=== PATIENT | female | born 1965 | race African-American/Black ===

== ENCOUNTER 2018-02-28 13:50 | Emergency (ER) | payer MEDICAID ==
[~2018-02-28] VITALS: Ht 162.6 cm; Wt 68.0 kg
[2018-02-28 13:58] VITALS: BP 134/88
== END 2018-02-28 21:30 | disposition left against medical advice (07) ==
LOC: ER 13:50
DX: Z53.21 Procedure and treatment not carried out due to patient leaving prior to being seen by health care provider (principal)

== ENCOUNTER 2018-09-03 22:44 | Inpatient (IN) | payer MEDICAID ==
[~2018-09-03] VITALS: Ht 160 cm; Wt 55.3 kg
[2018-09-03] MEDS ORDERED: SODIUM CHLORIDE 0.9% 1,000 ML IV ONE (23:12)
[2018-09-03 23:35] LABS: BASOPHILS % 0.9 % (0.0-2.0); EOSINOPHILS % 0.7 % (0.0-5.0); HEMATOCRIT. 44.2 % (36.0-48.0); HEMOGLOBIN. 14.7 g/dL (12.0-16.0); LYMPHOCYTES % 18.4 % (20.0-50.0); MEAN CORPUSCULAR HEMOGLOBIN 29.3 pg (28.0-32.0); MEAN CORPUSCULAR VOLUME 87.9 fL (81.0-99.0); MEAN PLATELET VOLUME 8.7 fl (7.4-10.4); MONOCYTES % 4.3 % (2.0-8.0); NEUTROPHILS % 75.7 % (40.0-76.0); PLATELET 219 x1000/uL (130-400); RED BLOOD CELL COUNT 5.02 mill/uL (4.2-5.4); RED CELL DISTRIBUTION WIDTH 14.8 % (11.6-14.6)
[2018-09-03 23:38] LABS: CHLORIDE 112 mEq/L (98-107)
[2018-09-03 23:41] LABS: INR 0.9; PROTHROMBIN TIME 9.3 sec (9.6-11.0)
[2018-09-03 23:42] LABS: ETHANOL BLOOD < 10 mg/dL
[2018-09-03 23:45] LABS: LDL CHOLESTEROL 124 mg/dL (5-100)
[2018-09-04] VITALS (69 sets, daily range): BP systolic 124–181; BP diastolic 73–110
[2018-09-04] MEDS ORDERED: LABETALOL 5MG/ML SYR 20 MG/4 ML SYRINGE IV ONE
[2018-09-04] MEDS ORDERED: BENZTROPINE MESYLATE 1MG/1ML 2ML AMP IM ONE
[2018-09-04] MEDS ORDERED: HYDRALAZINE 20MG/ML VIAL IV ONE ×2 (02:00→02:45)
[2018-09-04] MEDS ORDERED: ASPIRIN 300MG SUPP PR ONE (02:00)
[2018-09-04 02:12] LABS: CLARITY URINE CLEAR (CLEAR); COLOR URINE YELLOW (YELLOW); KETONES URINE NEGATIVE (NEGATIVE); LEUKOCYTE ESTERASE URINE 1+ (NEGATIVE); NITRITE URINE POSITIVE (NEGATIVE); OCCULT BLOOD URINE 1+ (NEGATIVE); PROTEIN URINE NEGATIVE (NEGATIVE); SPECIFIC GRAVITY URINE 1.015 (1.005-1.030); UROBILINOGEN URINE 0.2 E.U./dL (0.2-1.0)
[2018-09-04 02:39] LABS: *BARBITURATES SCREEN URINE NEGATIVE (NEGATIVE); *BENZODIAZEPINES SCREEN URINE NEGATIVE (NEGATIVE); *COCAINE SCREEN URINE NEGATIVE (NEGATIVE); METHADONE URINE SCREEN NEGATIVE (NEGATIVE)
[2018-09-04 02:40] LABS: *AMPHETAMINES SCREEN URINE PRESUMTIVE POSITIVE (NEGATIVE); CANNABINOID URINE SCREEN NEGATIVE (NEGATIVE); OPIATES URINE SCREEN NEGATIVE (NEGATIVE); PHENCYCLIDINE URINE SCREEN NEGATIVE (NEGATIVE)
[2018-09-04] MEDS ORDERED: NICARDIPINE 40MG/200ML PREMIX 200 ML IV SCH (03:45)
[2018-09-04] MEDS ORDERED: IOHEXOL-350 100 ML BOTTLE ONE (03:58)
[2018-09-04] MEDS ORDERED: IPRATROPIUM/ALBUTEROL 0.5-3(2.5)MG/3ML NEB INH PRN (07:30)
[2018-09-04] MEDS ORDERED: GUAIFENESIN 200MG/10ML SUGAR FREE UDC PO PRN (07:30)
[2018-09-04] MEDS ORDERED: ACETAMINOPHEN 325MG TABLET PO PRN (07:30)
[2018-09-04] MEDS ORDERED: MAGNESIUM/ALUMINUM HYDROXIDE/SIMETHICONE 30ML UDC PO PRN (07:30)
[2018-09-04] MEDS ORDERED: ONDANSETRON HCL 4MG/2ML INJ IV PRN (07:30)
[2018-09-04] MEDS: DEXT 5%/0.45% NACL 1000ML 1,000 ML IV SCH (08:23)
[2018-09-04] MEDS: NICARDIPINE 50 MG in SODIUM CHLORIDE 0.9% 230 ML IV PRN ×2 (09:17→22:27)
[2018-09-04] MEDS: CEFTRIAXONE 1 G PREMIX 50 ML IV SCH (09:25)
[2018-09-04 10:38] LABS: PHOSPHORUS 2.2 mg/dL (2.5-4.9)
[2018-09-04 10:43] LABS: CREATINE KINASE MB FRACTION 2.6 ng/mL (0.5-3.6)
[2018-09-04 12:16] LABS: HEPATITIS B SURFACE ANTIGEN NEGATIVE
[2018-09-04 12:44] LABS: HEPATITIS A AB IGM NEGATIVE (NEGATIVE)
[2018-09-04 15:39] LABS: *BARBITURATES SCREEN URINE NEGATIVE (NEGATIVE)
[2018-09-04 15:40] LABS: *BENZODIAZEPINES SCREEN URINE NEGATIVE (NEGATIVE); CANNABINOID URINE SCREEN NEGATIVE (NEGATIVE); OPIATES URINE SCREEN NEGATIVE (NEGATIVE); PHENCYCLIDINE URINE SCREEN NEGATIVE (NEGATIVE)
[2018-09-04 15:43] LABS: *AMPHETAMINES SCREEN URINE PRESUMTIVE POSITIVE (NEGATIVE)
[2018-09-04 15:47] LABS: *COCAINE SCREEN URINE NEGATIVE (NEGATIVE); METHADONE URINE SCREEN NEGATIVE (NEGATIVE)
[2018-09-04 16:14] LABS: CREATINE KINASE MB FRACTION 2.6 ng/mL (0.5-3.6)
[2018-09-04] MEDS: ENOXAPARIN 40MG/0.4ML SYR SUBCUT SCH (20:54)
[2018-09-05] VITALS (95 sets, daily range): BP systolic 121–167; BP diastolic 67–113
[2018-09-05] MEDS: DEXT 5%/0.45% NACL 1000ML 1,000 ML IV SCH (00:40)
[2018-09-05] MEDS: NICARDIPINE 50 MG in SODIUM CHLORIDE 0.9% 230 ML IV PRN (04:49)
[2018-09-05 05:37] LABS: BASOPHILS % 0.6 % (0.0-2.0); EOSINOPHILS % 0.6 % (0.0-5.0); HEMATOCRIT. 45.1 % (36.0-48.0); HEMOGLOBIN. 14.4 g/dL (12.0-16.0); LYMPHOCYTES % 16.3 % (20.0-50.0); MEAN CORPUSCULAR HEMOGLOBIN 28.4 pg (28.0-32.0); MEAN CORPUSCULAR VOLUME 88.9 fL (81.0-99.0); MEAN PLATELET VOLUME 9.1 fl (7.4-10.4); MONOCYTES % 7.3 % (2.0-8.0); NEUTROPHILS % 75.2 % (40.0-76.0); PLATELET 254 x1000/uL (130-400); RED BLOOD CELL COUNT 5.08 mill/uL (4.2-5.4); RED CELL DISTRIBUTION WIDTH 15.3 % (11.6-14.6)
[2018-09-05 05:49] LABS: CHLORIDE 124 mEq/L (98-107)
[2018-09-05 06:03] LABS: LDL CHOLESTEROL 113 mg/dL (5-100)
[2018-09-05 06:05] LABS: HDL CHOLESTEROL 45 mg/dL (40-59)
[2018-09-05] MEDS: CEFTRIAXONE 1 G PREMIX 50 ML IV SCH (08:44)
[2018-09-05] MEDS: DEXTROSE 5% WATER 1,000 ML IV SCH (11:00)
[2018-09-05] MEDS ORDERED: NICARDIPINE 50 MG in SODIUM CHLORIDE 0.9% 230 ML IV PRN (11:30)
[2018-09-05 12:59] LABS: CHLORIDE 124 mEq/L (98-107)
[2018-09-05] MEDS ORDERED: NICARDIPINE 40MG/200ML PREMIX 200 ML IV SCH (14:45)
[2018-09-05 15:05] LABS: CHLORIDE 126 mEq/L (98-107)
[2018-09-05] MEDS ORDERED: NICARDIPINE 50 MG in SODIUM CHLORIDE 0.9% 230 ML IV SCH (16:00)
[2018-09-05] MEDS ORDERED: LITHIUM CARBONATE 150 MG CAPSULE PO SCH (17:00)
[2018-09-05 17:04] LABS: CHLORIDE 124 mEq/L (98-107)
[2018-09-05 18:51] LABS: CHLORIDE 126 mEq/L (98-107)
[2018-09-05] MEDS: ENOXAPARIN 40MG/0.4ML SYR SUBCUT SCH (20:24)
[2018-09-05 23:15] LABS: CHLORIDE 124 mEq/L (98-107)
[2018-09-06] VITALS (105 sets, daily range): BP systolic 103–184; BP diastolic 55–135
[2018-09-06] MEDS: DEXTROSE 5% WATER 1,000 ML IV SCH ×3 (00:45→18:32)
[2018-09-06 00:57] LABS: CHLORIDE 122 mEq/L (98-107)
[2018-09-06] MEDS: CLONIDINE 0.1MG TABLET PO PRN ×2 (02:17→10:57)
[2018-09-06] MEDS: DIPHENHYDRAMINE 50MG/ML VIAL IV PRN (02:18)
[2018-09-06 05:50] LABS: BASOPHILS % 0.7 % (0.0-2.0); EOSINOPHILS % 0.6 % (0.0-5.0); HEMATOCRIT. 41.9 % (36.0-48.0); HEMOGLOBIN. 13.5 g/dL (12.0-16.0); LYMPHOCYTES % 20.4 % (20.0-50.0); MEAN CORPUSCULAR HEMOGLOBIN 28.7 pg (28.0-32.0); MEAN PLATELET VOLUME 9.4 fl (7.4-10.4); MONOCYTES % 6.9 % (2.0-8.0); NEUTROPHILS % 71.4 % (40.0-76.0); PLATELET 238 x1000/uL (130-400); RED BLOOD CELL COUNT 4.71 mill/uL (4.2-5.4); RED CELL DISTRIBUTION WIDTH 15.2 % (11.6-14.6)
[2018-09-06 06:13] LABS: HIV SCREEN 4G Non Reactive (Non Reactive)
[2018-09-06 06:20] LABS: CHLORIDE 122 mEq/L (98-107)
[2018-09-06 06:39] LABS: PHOSPHORUS 2.9 mg/dL (2.5-4.9)
[2018-09-06 07:38] LABS: BG BASE EXCESS -2.7 mmol/L (-2.0-2.0); BG CARBOXYHEMOGLOBIN 0.5 % (0.5-1.5); BG DEOXYHEMOGLOBIN 1.3 % (0.0-5.0); BG HCO3 ACT 21.4 mmol/L (22.0-26.0); BG METHEMOGLOBIN 0.1 % (0.0-1.5); BG OXYGEN SATURATION 98.7 % (92.0-98.5); BG OXYHEMOGLOBIN 98.1 % (94.0-97.0); BG PCO2 35.4 mmHg (35.0-45.0); BG PO2 130.5 mmHg (75.0-100.0); BG SAMPLE SITE RIGHT BRACHIAL; BG TOTAL HEMOGLOBIN 14.5 g/dL (12.0-18.0); BG VENT MODE NASAL CANNULA
[2018-09-06 08:05] LABS: CHLORIDE 123 mEq/L (98-107)
[2018-09-06] MEDS: CEFTRIAXONE 1 G PREMIX 50 ML IV SCH (08:49)
[2018-09-06] MEDS: ASPIRIN 81MG TABLET PO SCH (08:50)
[2018-09-06 14:38] LABS: CHLORIDE 121 mEq/L (98-107)
[2018-09-06] MEDS ORDERED: DILTIAZEM HCL 60MG TABLET PO NR (16:00)
[2018-09-06] MEDS ORDERED: POTASSIUM CHLORIDE INJ 40 MEQ in DEXT 5% WATER 250 ML IV NR (17:00)
[2018-09-06] MEDS: NICARDIPINE 50 MG in SODIUM CHLORIDE 0.9% 230 ML IV SCH (21:01)
[2018-09-06] MEDS: ENOXAPARIN 40MG/0.4ML SYR SUBCUT SCH (21:01)
[2018-09-06] MEDS: ATORVASTATIN CALCIUM 20MG TABLET PO SCH (21:02)
[2018-09-06] MEDS: HYDRALAZINE HCL 50MG TABLET PO SCH (21:02)
[2018-09-06] MEDS: DILTIAZEM HCL 60MG TABLET PO SCH ×2 (21:02→23:18)
[2018-09-07] VITALS (74 sets, daily range): BP systolic 115–161; BP diastolic 67–95
[2018-09-07] MEDS: DEXTROSE 5% WATER 1,000 ML IV SCH ×3 (01:19→23:32)
[2018-09-07] MEDS: HYDRALAZINE HCL 50MG TABLET PO SCH ×3 (05:28→21:10)
[2018-09-07] MEDS: DILTIAZEM HCL 60MG TABLET PO SCH (05:28)
[2018-09-07 05:45] LABS: EOSINOPHILS % 1.1 % (0.0-5.0); HEMATOCRIT. 44.1 % (36.0-48.0); LYMPHOCYTES % 15.2 % (20.0-50.0); MEAN CORPUSCULAR HEMOGLOBIN 28.4 pg (28.0-32.0); MEAN PLATELET VOLUME 9.3 fl (7.4-10.4); MONOCYTES % 5.2 % (2.0-8.0); NEUTROPHILS % 77.5 % (40.0-76.0); PLATELET 248 x1000/uL (130-400); RED BLOOD CELL COUNT 4.95 mill/uL (4.2-5.4); RED CELL DISTRIBUTION WIDTH 15.1 % (11.6-14.6)
[2018-09-07 06:00] LABS: CHLORIDE 118 mEq/L (98-107)
[2018-09-07] MEDS: NICARDIPINE 50 MG in SODIUM CHLORIDE 0.9% 230 ML IV SCH (06:59)
[2018-09-07] MEDS: CEFTRIAXONE 1 G PREMIX 50 ML IV SCH (09:34)
[2018-09-07] MEDS: ASPIRIN 81MG TABLET PO SCH (09:35)
[2018-09-07] MEDS: DILTIAZEM HCL 90MG TABLET PO SCH ×2 (14:37→21:10)
[2018-09-07] MEDS: ATORVASTATIN CALCIUM 20MG TABLET PO SCH (21:10)
[2018-09-07] MEDS: ENOXAPARIN 40MG/0.4ML SYR SUBCUT SCH (21:11)
[2018-09-08] VITALS (35 sets, daily range): BP systolic 123–152; BP diastolic 70–97
[2018-09-08] MEDS: DILTIAZEM HCL 90MG TABLET PO SCH ×3 (05:34→21:08)
[2018-09-08] MEDS: HYDRALAZINE HCL 50MG TABLET PO SCH ×3 (05:34→21:08)
[2018-09-08 05:38] LABS: BASOPHILS % 0.6 % (0.0-2.0); EOSINOPHILS % 2.2 % (0.0-5.0); HEMATOCRIT. 43.1 % (36.0-48.0); HEMOGLOBIN. 13.7 g/dL (12.0-16.0); LYMPHOCYTES % 22.6 % (20.0-50.0); MEAN CORPUSCULAR HEMOGLOBIN 28.2 pg (28.0-32.0); MEAN CORPUSCULAR VOLUME 88.5 fL (81.0-99.0); MEAN PLATELET VOLUME 9.4 fl (7.4-10.4); MONOCYTES % 6.2 % (2.0-8.0); NEUTROPHILS % 68.4 % (40.0-76.0); PLATELET 246 x1000/uL (130-400); RED BLOOD CELL COUNT 4.87 mill/uL (4.2-5.4); RED CELL DISTRIBUTION WIDTH 14.7 % (11.6-14.6)
[2018-09-08 05:39] LABS: CHLORIDE 114 mEq/L (98-107)
[2018-09-08 05:49] LABS: PHOSPHORUS 3.7 mg/dL (2.5-4.9)
[2018-09-08] MEDS: CEFTRIAXONE 1 G PREMIX 50 ML IV SCH (08:03)
[2018-09-08] MEDS: ASPIRIN 81MG TABLET PO SCH (08:03)
[2018-09-08] MEDS: DEXTROSE 5% WATER 1,000 ML IV SCH (13:03)
[2018-09-08] MEDS: ENOXAPARIN 40MG/0.4ML SYR SUBCUT SCH (21:08)
[2018-09-08] MEDS: ATORVASTATIN CALCIUM 20MG TABLET PO SCH (21:08)
[2018-09-08] MEDS: DOCUSATE SODIUM 100MG CAPSULE PO PRN (21:55)
[2018-09-09] VITALS (15 sets, daily range): BP systolic 122–163; BP diastolic 70–105
[2018-09-09] MEDS: DEXTROSE 5% WATER 1,000 ML IV SCH ×2 (02:40→13:55)
[2018-09-09] MEDS: HYDRALAZINE HCL 50MG TABLET PO SCH ×3 (06:13→21:49)
[2018-09-09] MEDS: DILTIAZEM HCL 90MG TABLET PO SCH ×3 (06:13→21:49)
[2018-09-09 06:21] LABS: BASOPHILS % 0.8 % (0.0-2.0); EOSINOPHILS % 2.6 % (0.0-5.0); HEMATOCRIT. 42.8 % (36.0-48.0); HEMOGLOBIN. 13.8 g/dL (12.0-16.0); LYMPHOCYTES % 28.2 % (20.0-50.0); MEAN CORPUSCULAR HEMOGLOBIN 28.5 pg (28.0-32.0); MEAN CORPUSCULAR VOLUME 88.3 fL (81.0-99.0); MEAN PLATELET VOLUME 9.5 fl (7.4-10.4); MONOCYTES % 8.9 % (2.0-8.0); NEUTROPHILS % 59.5 % (40.0-76.0); PLATELET 256 x1000/uL (130-400); RED BLOOD CELL COUNT 4.84 mill/uL (4.2-5.4); RED CELL DISTRIBUTION WIDTH 14.7 % (11.6-14.6)
[2018-09-09 07:12] LABS: CHLORIDE 116 mEq/L (98-107)
[2018-09-09 07:23] LABS: PHOSPHORUS 3.2 mg/dL (2.5-4.9)
[2018-09-09] MEDS: ASPIRIN 81MG TABLET PO SCH (08:42)
[2018-09-09] MEDS: CEFTRIAXONE 1 G PREMIX 50 ML IV SCH (08:42)
[2018-09-09] MEDS: CLONIDINE 0.1MG TABLET PO PRN (10:21)
[2018-09-09] MEDS: DOCUSATE SODIUM 100MG CAPSULE PO PRN (13:48)
[2018-09-09 17:43] LABS: CLARITY URINE CLEAR (CLEAR); COLOR URINE YELLOW (YELLOW); KETONES URINE NEGATIVE (NEGATIVE); LEUKOCYTE ESTERASE URINE 1+ (NEGATIVE); NITRITE URINE NEGATIVE (NEGATIVE); OCCULT BLOOD URINE NEGATIVE (NEGATIVE); PH URINE 6.5 (4.5-8.0); PROTEIN URINE NEGATIVE (NEGATIVE); SPECIFIC GRAVITY URINE 1.008 (1.005-1.030); UROBILINOGEN URINE 0.2 E.U./dL (0.2-1.0)
[2018-09-09] MEDS: ATORVASTATIN CALCIUM 20MG TABLET PO SCH (21:48)
[2018-09-09] MEDS: ENOXAPARIN 40MG/0.4ML SYR SUBCUT SCH (21:48)
[2018-09-10] VITALS (12 sets, daily range): BP systolic 142–176; BP diastolic 75–105
[2018-09-10] MEDS: DEXTROSE 5% WATER 1,000 ML IV SCH ×3 (01:05→21:50)
[2018-09-10] MEDS: HYDRALAZINE HCL 50MG TABLET PO SCH (06:03)
[2018-09-10] MEDS: DILTIAZEM HCL 90MG TABLET PO SCH ×3 (06:03→21:54)
[2018-09-10 07:25] LABS: EOSINOPHILS % 2.4 % (0.0-5.0); HEMATOCRIT. 42.8 % (36.0-48.0); HEMOGLOBIN. 13.9 g/dL (12.0-16.0); LYMPHOCYTES % 23.8 % (20.0-50.0); MEAN CORPUSCULAR HEMOGLOBIN 28.7 pg (28.0-32.0); MEAN CORPUSCULAR VOLUME 88.3 fL (81.0-99.0); MEAN PLATELET VOLUME 9.4 fl (7.4-10.4); MONOCYTES % 7.8 % (2.0-8.0); PLATELET 235 x1000/uL (130-400); RED BLOOD CELL COUNT 4.85 mill/uL (4.2-5.4); RED CELL DISTRIBUTION WIDTH 14.3 % (11.6-14.6)
[2018-09-10 07:37] LABS: CHLORIDE 115 mEq/L (98-107)
[2018-09-10] MEDS: ASPIRIN 81MG TABLET PO SCH (09:16)
[2018-09-10] MEDS: LOSARTAN POTASSIUM 25 MG TABLET PO SCH (13:37)
[2018-09-10] MEDS: HYDRALAZINE HCL 100MG TABLET PO SCH ×2 (13:38→21:53)
[2018-09-10] MEDS: ENOXAPARIN 40MG/0.4ML SYR SUBCUT SCH (21:51)
[2018-09-10] MEDS: ATORVASTATIN CALCIUM 20MG TABLET PO SCH (21:51)
[2018-09-11] VITALS (20 sets, daily range): BP systolic 110–150; BP diastolic 61–94
[2018-09-11] MEDS: DEXTROSE 5% WATER 1,000 ML IV SCH (06:08)
[2018-09-11] MEDS: HYDRALAZINE HCL 100MG TABLET PO SCH ×3 (06:09→22:01)
[2018-09-11] MEDS: DILTIAZEM HCL 90MG TABLET PO SCH ×3 (06:09→21:57)
[2018-09-11 07:41] LABS: EOSINOPHILS % 1.7 % (0.0-5.0); HEMATOCRIT. 43.1 % (36.0-48.0); HEMOGLOBIN. 13.7 g/dL (12.0-16.0); LYMPHOCYTES % 17.8 % (20.0-50.0); MEAN CORPUSCULAR VOLUME 88.3 fL (81.0-99.0); MEAN PLATELET VOLUME 9.9 fl (7.4-10.4); MONOCYTES % 8.7 % (2.0-8.0); NEUTROPHILS % 70.8 % (40.0-76.0); PLATELET 265 x1000/uL (130-400); RED BLOOD CELL COUNT 4.88 mill/uL (4.2-5.4); RED CELL DISTRIBUTION WIDTH 14.6 % (11.6-14.6)
[2018-09-11 07:58] LABS: CHLORIDE 119 mEq/L (98-107)
[2018-09-11] MEDS: ASPIRIN 81MG TABLET PO SCH (09:40)
[2018-09-11] MEDS: LOSARTAN POTASSIUM 25 MG TABLET PO SCH (09:41)
[2018-09-11] MEDS: SODIUM CHLORIDE IV SCH ×2 (16:00→22:02)
[2018-09-11] MEDS: WATER IV SCH ×2 (16:00→22:02)
[2018-09-11] MEDS: [UNRECOGNIZED DRUG - OTHER] IV SCH ×2 (16:00→22:02)
[2018-09-11] MEDS: DEXTROSE IV SCH ×2 (16:00→22:02)
[2018-09-11] MEDS: ENOXAPARIN 40MG/0.4ML SYR SUBCUT SCH (21:56)
[2018-09-11] MEDS: ATORVASTATIN CALCIUM 20MG TABLET PO SCH (22:02)
[2018-09-12] VITALS (11 sets, daily range): BP systolic 114–151; BP diastolic 53–89
[2018-09-12 05:43] LABS: BASOPHILS % 0.7 % (0.0-2.0); EOSINOPHILS % 1.9 % (0.0-5.0); HEMOGLOBIN. 13.3 g/dL (12.0-16.0); LYMPHOCYTES % 27.1 % (20.0-50.0); MEAN CORPUSCULAR HEMOGLOBIN 27.9 pg (28.0-32.0); MEAN CORPUSCULAR VOLUME 88.5 fL (81.0-99.0); MEAN PLATELET VOLUME 10.1 fl (7.4-10.4); MONOCYTES % 7.1 % (2.0-8.0); NEUTROPHILS % 63.2 % (40.0-76.0); PLATELET 258 x1000/uL (130-400); RED BLOOD CELL COUNT 4.75 mill/uL (4.2-5.4); RED CELL DISTRIBUTION WIDTH 14.4 % (11.6-14.6)
[2018-09-12] MEDS: HYDRALAZINE HCL 100MG TABLET PO SCH ×3 (06:29→22:00)
[2018-09-12] MEDS: DILTIAZEM HCL 90MG TABLET PO SCH ×3 (06:29→22:54)
[2018-09-12] MEDS: DEXTROSE IV SCH ×2 (06:30→14:01)
[2018-09-12] MEDS: [UNRECOGNIZED DRUG - OTHER] IV SCH ×2 (06:30→14:01)
[2018-09-12] MEDS: WATER IV SCH ×2 (06:30→14:01)
[2018-09-12] MEDS: SODIUM CHLORIDE IV SCH ×2 (06:30→14:01)
[2018-09-12 07:49] LABS: CHLORIDE 116 mEq/L (98-107)
[2018-09-12 07:55] LABS: PHOSPHORUS 3.3 mg/dL (2.5-4.9)
[2018-09-12] MEDS: LOSARTAN POTASSIUM 25 MG TABLET PO SCH (08:42)
[2018-09-12] MEDS: ASPIRIN 81MG TABLET PO SCH (08:42)
[2018-09-12] MEDS: DEXTROSE 5% WATER 1,000 ML IV SCH (16:53)
[2018-09-12] MEDS: ATORVASTATIN CALCIUM 20MG TABLET PO SCH (22:53)
[2018-09-12] MEDS: ENOXAPARIN 40MG/0.4ML SYR SUBCUT SCH (22:55)
[2018-09-13 00:20] VITALS: BP 120/71
[2018-09-13] MEDS: DEXTROSE 5% WATER 1,000 ML IV SCH ×3 (02:21→21:42)
[2018-09-13 04:00] VITALS: BP 141/78
[2018-09-13] MEDS: DILTIAZEM HCL 90MG TABLET PO SCH ×3 (05:26→21:11)
[2018-09-13] MEDS: HYDRALAZINE HCL 100MG TABLET PO SCH ×3 (05:27→21:12)
[2018-09-13 06:10] LABS: BASOPHILS % 0.8 % (0.0-2.0); EOSINOPHILS % 1.9 % (0.0-5.0); HEMATOCRIT. 39.9 % (36.0-48.0); HEMOGLOBIN. 13.3 g/dL (12.0-16.0); MEAN CORPUSCULAR HEMOGLOBIN 29.3 pg (28.0-32.0); MEAN PLATELET VOLUME 9.8 fl (7.4-10.4); MONOCYTES % 6.9 % (2.0-8.0); NEUTROPHILS % 63.4 % (40.0-76.0); PLATELET 242 x1000/uL (130-400); RED BLOOD CELL COUNT 4.54 mill/uL (4.2-5.4); RED CELL DISTRIBUTION WIDTH 14.4 % (11.6-14.6)
[2018-09-13 07:56] LABS: CHLORIDE 113 mEq/L (98-107)
[2018-09-13 08:00] VITALS: BP_SYST 108; BP_SYST 119; BP_DIAS 46; BP_DIAS 75
[2018-09-13 08:05] LABS: PHOSPHORUS 3.5 mg/dL (2.5-4.9)
[2018-09-13] MEDS: LOSARTAN POTASSIUM 25 MG TABLET PO SCH (09:29)
[2018-09-13] MEDS: ASPIRIN 81MG TABLET PO SCH (09:29)
[2018-09-13 12:00] VITALS: BP 135/61
[2018-09-13 16:00] VITALS: BP 103/49
[2018-09-13 20:23] VITALS: BP 105/51
[2018-09-13] MEDS: ENOXAPARIN 40MG/0.4ML SYR SUBCUT SCH (21:42)
[2018-09-13] MEDS: ATORVASTATIN CALCIUM 20MG TABLET PO SCH (21:42)
[2018-09-14] VITALS: BP 118/64
[2018-09-14 04:39] VITALS: BP 124/79
[2018-09-14] MEDS: DILTIAZEM HCL 90MG TABLET PO SCH ×3 (05:14→21:07)
[2018-09-14] MEDS: HYDRALAZINE HCL 100MG TABLET PO SCH ×3 (05:14→21:07)
[2018-09-14 06:41] LABS: BASOPHILS % 0.9 % (0.0-2.0); EOSINOPHILS % 1.8 % (0.0-5.0); HEMATOCRIT. 41.2 % (36.0-48.0); HEMOGLOBIN. 13.6 g/dL (12.0-16.0); LYMPHOCYTES % 21.7 % (20.0-50.0); MEAN CORPUSCULAR HEMOGLOBIN 28.9 pg (28.0-32.0); MEAN CORPUSCULAR VOLUME 87.9 fL (81.0-99.0); MEAN PLATELET VOLUME 9.3 fl (7.4-10.4); NEUTROPHILS % 67.6 % (40.0-76.0); PLATELET 269 x1000/uL (130-400); RED BLOOD CELL COUNT 4.69 mill/uL (4.2-5.4); RED CELL DISTRIBUTION WIDTH 14.6 % (11.6-14.6)
[2018-09-14 07:14] LABS: CHLORIDE 111 mEq/L (98-107)
[2018-09-14 07:25] LABS: PHOSPHORUS 3.4 mg/dL (2.5-4.9)
[2018-09-14] MEDS: LOSARTAN POTASSIUM 25 MG TABLET PO SCH (09:00)
[2018-09-14] MEDS: ASPIRIN 81MG TABLET PO SCH (09:38)
[2018-09-14] MEDS: DEXTROSE 5% WATER 1,000 ML IV SCH (09:40)
[2018-09-14 11:25] VITALS: BP 106/61
[2018-09-14 15:57] VITALS: BP 110/63
[2018-09-14 20:00] VITALS: BP 122/75
[2018-09-14] MEDS: ENOXAPARIN 40MG/0.4ML SYR SUBCUT SCH (20:32)
[2018-09-14] MEDS: ATORVASTATIN CALCIUM 20MG TABLET PO SCH (20:33)
[2018-09-15] VITALS: BP 127/69
[2018-09-15] MEDS: DEXTROSE 5% WATER 1,000 ML IV SCH ×2 (04:00→16:51)
[2018-09-15 04:11] VITALS: BP 131/74
[2018-09-15] MEDS: HYDRALAZINE HCL 100MG TABLET PO SCH ×3 (06:00→21:33)
[2018-09-15] MEDS: DILTIAZEM HCL 90MG TABLET PO SCH ×3 (06:00→21:33)
[2018-09-15 06:36] LABS: BASOPHILS % 0.9 % (0.0-2.0); EOSINOPHILS % 2.4 % (0.0-5.0); HEMATOCRIT. 39.7 % (36.0-48.0); LYMPHOCYTES % 26.7 % (20.0-50.0); MEAN CORPUSCULAR HEMOGLOBIN 28.7 pg (28.0-32.0); MEAN CORPUSCULAR VOLUME 87.6 fL (81.0-99.0); MEAN PLATELET VOLUME 9.7 fl (7.4-10.4); MONOCYTES % 7.6 % (2.0-8.0); NEUTROPHILS % 62.4 % (40.0-76.0); PLATELET 266 x1000/uL (130-400); RED BLOOD CELL COUNT 4.53 mill/uL (4.2-5.4); RED CELL DISTRIBUTION WIDTH 14.5 % (11.6-14.6)
[2018-09-15 07:26] LABS: CHLORIDE 107 mEq/L (98-107)
[2018-09-15 07:45] LABS: PHOSPHORUS 3.6 mg/dL (2.5-4.9)
[2018-09-15 08:00] VITALS: BP 109/65
[2018-09-15] MEDS: LOSARTAN POTASSIUM 25 MG TABLET PO SCH (08:33)
[2018-09-15] MEDS: ASPIRIN 81MG TABLET PO SCH (08:38)
[2018-09-15 12:02] VITALS: BP 123/82
[2018-09-15 15:37] VITALS: BP 127/71
[2018-09-15 20:00] VITALS: BP 128/70
[2018-09-15] MEDS: ENOXAPARIN 40MG/0.4ML SYR SUBCUT SCH (21:32)
[2018-09-15] MEDS: ATORVASTATIN CALCIUM 20MG TABLET PO SCH (21:32)
[2018-09-16] VITALS: BP 120/65
[2018-09-16 04:00] VITALS: BP 123/69
[2018-09-16] MEDS: HYDRALAZINE HCL 100MG TABLET PO SCH ×3 (06:22→21:14)
[2018-09-16] MEDS: DILTIAZEM HCL 90MG TABLET PO SCH ×3 (06:22→21:14)
[2018-09-16 08:11] LABS: BASOPHILS % 0.9 % (0.0-2.0); EOSINOPHILS % 2.2 % (0.0-5.0); HEMATOCRIT. 39.5 % (36.0-48.0); HEMOGLOBIN. 13.1 g/dL (12.0-16.0); MEAN CORPUSCULAR HEMOGLOBIN 28.9 pg (28.0-32.0); MEAN CORPUSCULAR VOLUME 86.9 fL (81.0-99.0); MEAN PLATELET VOLUME 9.5 fl (7.4-10.4); MONOCYTES % 8.1 % (2.0-8.0); NEUTROPHILS % 67.8 % (40.0-76.0); PLATELET 277 x1000/uL (130-400); RED BLOOD CELL COUNT 4.55 mill/uL (4.2-5.4); RED CELL DISTRIBUTION WIDTH 14.5 % (11.6-14.6)
[2018-09-16 08:36] VITALS: BP 113/56
[2018-09-16] MEDS: ASPIRIN 81MG TABLET PO SCH (08:49)
[2018-09-16] MEDS: LOSARTAN POTASSIUM 25 MG TABLET PO SCH (08:49)
[2018-09-16 09:24] LABS: CHLORIDE 109 mEq/L (98-107)
[2018-09-16 09:36] LABS: PHOSPHORUS 3.3 mg/dL (2.5-4.9)
[2018-09-16 12:26] VITALS: BP 109/59
[2018-09-16] MEDS: DEXTROSE 5% WATER 1,000 ML IV SCH (15:12)
[2018-09-16 16:44] VITALS: BP 100/68
[2018-09-16 20:00] VITALS: BP 115/71
[2018-09-16] MEDS: ENOXAPARIN 40MG/0.4ML SYR SUBCUT SCH (21:14)
[2018-09-16] MEDS: CHOLECALCIFEROL (D3) 1000 UNIT TABLET PO SCH (21:14)
[2018-09-16] MEDS: ATORVASTATIN CALCIUM 20MG TABLET PO SCH (21:14)
[2018-09-17] VITALS: BP 113/75
[2018-09-17] MEDS: DEXTROSE 5% WATER 1,000 ML IV SCH ×2 (01:19→09:24)
[2018-09-17 04:00] VITALS: BP 107/70
[2018-09-17] MEDS: HYDRALAZINE HCL 100MG TABLET PO SCH (06:00)
[2018-09-17] MEDS: DILTIAZEM HCL 90MG TABLET PO SCH ×3 (06:05→21:22)
[2018-09-17 07:10] LABS: BASOPHILS % 0.9 % (0.0-2.0); EOSINOPHILS % 3.3 % (0.0-5.0); HEMATOCRIT. 36.5 % (36.0-48.0); HEMOGLOBIN. 12.1 g/dL (12.0-16.0); LYMPHOCYTES % 31.7 % (20.0-50.0); MEAN CORPUSCULAR VOLUME 87.8 fL (81.0-99.0); MEAN PLATELET VOLUME 9.5 fl (7.4-10.4); MONOCYTES % 8.8 % (2.0-8.0); NEUTROPHILS % 55.3 % (40.0-76.0); PLATELET 252 x1000/uL (130-400); RED BLOOD CELL COUNT 4.16 mill/uL (4.2-5.4); RED CELL DISTRIBUTION WIDTH 14.3 % (11.6-14.6)
[2018-09-17 07:51] LABS: CHLORIDE 108 mEq/L (98-107)
[2018-09-17 08:00] VITALS: BP 101/55
[2018-09-17 08:08] LABS: PHOSPHORUS 3.2 mg/dL (2.5-4.9)
[2018-09-17] MEDS: ASPIRIN 81MG TABLET PO SCH (09:12)
[2018-09-17] MEDS: LOSARTAN POTASSIUM 25 MG TABLET PO SCH (09:12)
[2018-09-17] MEDS: CHOLECALCIFEROL (D3) 1000 UNIT TABLET PO SCH (09:12)
[2018-09-17 12:00] VITALS: BP 98/63
[2018-09-17] MEDS ORDERED: DEXT 5% WATER + KCL 40MEQ/L 1,000 ML IV SCH (12:00)
[2018-09-17] MEDS: POTASSIUM CHLORIDE INJ 40 MEQ in DEXTROSE 5% WATER 1,000 ML IV SCH (13:31)
[2018-09-17] MEDS: HYDRALAZINE HCL 50MG TABLET PO SCH ×2 (13:33→21:23)
[2018-09-17] MEDS ORDERED: POTASSIUM CHLORIDE 20MEQ TABLET SR PO NR (14:22)
[2018-09-17 16:00] VITALS: BP 101/64
[2018-09-17 20:00] VITALS: BP 117/74
[2018-09-17] MEDS: ENOXAPARIN 40MG/0.4ML SYR SUBCUT SCH (21:22)
[2018-09-17] MEDS: ATORVASTATIN CALCIUM 20MG TABLET PO SCH (21:22)
[2018-09-18] VITALS (7 sets, daily range): BP systolic 113–131; BP diastolic 51–79
[2018-09-18] MEDS: DILTIAZEM HCL 90MG TABLET PO SCH ×3 (05:16→21:07)
[2018-09-18] MEDS: HYDRALAZINE HCL 50MG TABLET PO SCH (05:18)
[2018-09-18 08:44] LABS: CHLORIDE 111 mEq/L (98-107)
[2018-09-18] MEDS ORDERED: CHOLECALCIFEROL (D3) 1000 UNIT TABLET PO SCH ×2 (09:00)
[2018-09-18] MEDS: ASPIRIN 81MG TABLET PO SCH (09:14)
[2018-09-18] MEDS: LOSARTAN POTASSIUM 25 MG TABLET PO SCH (09:14)
[2018-09-18] MEDS: POTASSIUM CHLORIDE INJ 40 MEQ in DEXTROSE 5% WATER 1,000 ML IV SCH (10:54)
[2018-09-18] MEDS ORDERED: POTASSIUM CHLORIDE 20MEQ TABLET SR PO SCH (11:45)
[2018-09-18] MEDS: CLOTRIMAZOLE 10MG TROCHE MM SCH ×3 (14:19→21:06)
[2018-09-18] MEDS: HYDRALAZINE HCL 25MG TABLET PO SCH (21:00)
[2018-09-18] MEDS: ENOXAPARIN 40MG/0.4ML SYR SUBCUT SCH (21:07)
[2018-09-18] MEDS: ATORVASTATIN CALCIUM 20MG TABLET PO SCH (21:07)
[2018-09-19] VITALS: BP 148/87
[2018-09-19 04:00] VITALS: BP 132/80
[2018-09-19] MEDS: DILTIAZEM HCL 90MG TABLET PO SCH ×3 (05:16→21:00)
[2018-09-19 07:05] LABS: CHLORIDE 112 mEq/L (98-107)
[2018-09-19 07:17] LABS: PHOSPHORUS 3.1 mg/dL (2.5-4.9)
[2018-09-19 08:46] VITALS: BP 119/81
[2018-09-19] MEDS: LOSARTAN POTASSIUM 25 MG TABLET PO SCH (09:00)
[2018-09-19] MEDS: HYDRALAZINE HCL 25MG TABLET PO SCH ×2 (09:00→20:51)
[2018-09-19] MEDS: ASPIRIN 81MG TABLET PO SCH (10:17)
[2018-09-19] MEDS: CLOTRIMAZOLE 10MG TROCHE MM SCH ×4 (10:17→20:51)
[2018-09-19 12:35] VITALS: BP 143/78
[2018-09-19 17:22] VITALS: BP 135/81
[2018-09-19 20:00] VITALS: BP 157/79
[2018-09-19] MEDS: ATORVASTATIN CALCIUM 20MG TABLET PO SCH (20:51)
[2018-09-19] MEDS: ENOXAPARIN 40MG/0.4ML SYR SUBCUT SCH (20:51)
[2018-09-20] VITALS: BP 132/82
[2018-09-20 04:00] VITALS: BP 132/85
[2018-09-20] MEDS: DILTIAZEM HCL 90MG TABLET PO SCH ×3 (05:26→23:19)
[2018-09-20 06:17] LABS: EOSINOPHILS % 1.8 % (0.0-5.0); HEMATOCRIT. 41.7 % (36.0-48.0); HEMOGLOBIN. 13.8 g/dL (12.0-16.0); LYMPHOCYTES % 27.1 % (20.0-50.0); MEAN CORPUSCULAR HEMOGLOBIN 29.1 pg (28.0-32.0); MEAN CORPUSCULAR VOLUME 88.1 fL (81.0-99.0); MEAN PLATELET VOLUME 9.4 fl (7.4-10.4); MONOCYTES % 6.8 % (2.0-8.0); NEUTROPHILS % 63.3 % (40.0-76.0); PLATELET 300 x1000/uL (130-400); RED BLOOD CELL COUNT 4.73 mill/uL (4.2-5.4); RED CELL DISTRIBUTION WIDTH 14.7 % (11.6-14.6)
[2018-09-20 06:58] LABS: CHLORIDE 113 mEq/L (98-107)
[2018-09-20 07:12] LABS: PHOSPHORUS 3.3 mg/dL (2.5-4.9)
[2018-09-20 08:00] VITALS: BP 126/76
[2018-09-20 08:36] VITALS: BP 126/76
[2018-09-20] MEDS: CLOTRIMAZOLE 10MG TROCHE MM SCH ×4 (09:24→21:50)
[2018-09-20] MEDS: ASPIRIN 81MG TABLET PO SCH (09:24)
[2018-09-20] MEDS: LOSARTAN POTASSIUM 25 MG TABLET PO SCH (09:24)
[2018-09-20] MEDS: HYDRALAZINE HCL 25MG TABLET PO SCH ×2 (09:24→21:51)
[2018-09-20 12:00] VITALS: BP 111/71
[2018-09-20] MEDS: DOCUSATE SODIUM 100MG CAPSULE PO PRN (12:26)
[2018-09-20 16:04] LABS: CLARITY URINE CLEAR (CLEAR); COLOR URINE YELLOW (YELLOW); KETONES URINE NEGATIVE (NEGATIVE); LEUKOCYTE ESTERASE URINE NEGATIVE (NEGATIVE); NITRITE URINE NEGATIVE (NEGATIVE); OCCULT BLOOD URINE NEGATIVE (NEGATIVE); PH URINE 5.5 (4.5-8.0); PROTEIN URINE NEGATIVE (NEGATIVE); SPECIFIC GRAVITY URINE 1.009 (1.005-1.030); UROBILINOGEN URINE 0.2 E.U./dL (0.2-1.0)
[2018-09-20 20:00] VITALS: BP 119/73
[2018-09-20] MEDS: ATORVASTATIN CALCIUM 20MG TABLET PO SCH (21:50)
[2018-09-20] MEDS: ENOXAPARIN 40MG/0.4ML SYR SUBCUT SCH (21:51)
[2018-09-20] MEDS: POLYETHYLENE GLYCOL 3350 (17GM) 1 DOSE PACK PO PRN (22:15)
[2018-09-21 00:07] VITALS: BP 120/83
[2018-09-21 04:24] VITALS: BP 134/77
[2018-09-21] MEDS: DILTIAZEM HCL 90MG TABLET PO SCH ×3 (05:36→23:08)
[2018-09-21 06:34] LABS: BASOPHILS % 0.8 % (0.0-2.0); EOSINOPHILS % 1.5 % (0.0-5.0); HEMATOCRIT. 42.7 % (36.0-48.0); HEMOGLOBIN. 13.7 g/dL (12.0-16.0); MEAN CORPUSCULAR HEMOGLOBIN 28.5 pg (28.0-32.0); MEAN CORPUSCULAR VOLUME 88.7 fL (81.0-99.0); MEAN PLATELET VOLUME 9.2 fl (7.4-10.4); MONOCYTES % 5.6 % (2.0-8.0); NEUTROPHILS % 69.1 % (40.0-76.0); PLATELET 296 x1000/uL (130-400); RED BLOOD CELL COUNT 4.82 mill/uL (4.2-5.4)
[2018-09-21 07:59] LABS: CHLORIDE 110 mEq/L (98-107)
[2018-09-21 08:35] VITALS: BP 118/73
[2018-09-21] MEDS: HYDRALAZINE HCL 25MG TABLET PO SCH ×2 (09:00→21:23)
[2018-09-21] MEDS: LOSARTAN POTASSIUM 25 MG TABLET PO SCH (09:24)
[2018-09-21] MEDS: ASPIRIN 81MG TABLET PO SCH (09:24)
[2018-09-21] MEDS: CLOTRIMAZOLE 10MG TROCHE MM SCH ×4 (09:24→21:12)
[2018-09-21 12:40] VITALS: BP 115/72
[2018-09-21 16:45] VITALS: BP 118/80
[2018-09-21 20:00] VITALS: BP 128/68
[2018-09-21] MEDS: ATORVASTATIN CALCIUM 20MG TABLET PO SCH (21:12)
[2018-09-21] MEDS: ENOXAPARIN 40MG/0.4ML SYR SUBCUT SCH (21:12)
[2018-09-22] VITALS: BP 146/81
[2018-09-22 04:00] VITALS: BP 135/76
[2018-09-22 06:45] LABS: HEMATOCRIT. 42.7 % (36.0-48.0); LYMPHOCYTES % 24.4 % (20.0-50.0); MEAN CORPUSCULAR HEMOGLOBIN 28.8 pg (28.0-32.0); MEAN PLATELET VOLUME 9.3 fl (7.4-10.4); MONOCYTES % 7.3 % (2.0-8.0); NEUTROPHILS % 65.3 % (40.0-76.0); PLATELET 302 x1000/uL (130-400); RED BLOOD CELL COUNT 4.85 mill/uL (4.2-5.4); RED CELL DISTRIBUTION WIDTH 14.9 % (11.6-14.6)
[2018-09-22] MEDS: DILTIAZEM HCL 90MG TABLET PO SCH ×3 (06:47→21:30)
[2018-09-22 07:53] LABS: CHLORIDE 111 mEq/L (98-107)
[2018-09-22 08:00] VITALS: BP 125/80
[2018-09-22 08:00] LABS: PHOSPHORUS 2.9 mg/dL (2.5-4.9)
[2018-09-22] MEDS: POLYETHYLENE GLYCOL 3350 (17GM) 1 DOSE PACK PO PRN (09:16)
[2018-09-22] MEDS: ASPIRIN 81MG TABLET PO SCH (09:16)
[2018-09-22] MEDS: LOSARTAN POTASSIUM 25 MG TABLET PO SCH (09:16)
[2018-09-22] MEDS: HYDRALAZINE HCL 25MG TABLET PO SCH ×2 (09:16→21:30)
[2018-09-22] MEDS: DOCUSATE SODIUM 100MG CAPSULE PO PRN (09:16)
[2018-09-22] MEDS: CLOTRIMAZOLE 10MG TROCHE MM SCH ×4 (09:17→21:30)
[2018-09-22 12:00] VITALS: BP 106/70
[2018-09-22] MEDS ORDERED: FLUPHENAZINE DECANOATE 25 MG/ML 5ML VIAL IM NR (15:00)
[2018-09-22 16:00] VITALS: BP 125/71
[2018-09-22 20:00] VITALS: BP 130/85
[2018-09-22] MEDS: ATORVASTATIN CALCIUM 20MG TABLET PO SCH (21:30)
[2018-09-22] MEDS: ENOXAPARIN 40MG/0.4ML SYR SUBCUT SCH (21:31)
[2018-09-23] VITALS: BP 119/84
[2018-09-23 04:00] VITALS: BP 132/84
[2018-09-23] MEDS: DILTIAZEM HCL 90MG TABLET PO SCH ×3 (05:41→21:00)
[2018-09-23 06:48] LABS: BASOPHILS % 0.7 % (0.0-2.0); HEMATOCRIT. 45.6 % (36.0-48.0); HEMOGLOBIN. 14.8 g/dL (12.0-16.0); LYMPHOCYTES % 27.6 % (20.0-50.0); MEAN CORPUSCULAR HEMOGLOBIN 28.8 pg (28.0-32.0); MEAN CORPUSCULAR VOLUME 88.5 fL (81.0-99.0); MEAN PLATELET VOLUME 9.5 fl (7.4-10.4); MONOCYTES % 6.5 % (2.0-8.0); NEUTROPHILS % 63.2 % (40.0-76.0); PLATELET 300 x1000/uL (130-400); RED BLOOD CELL COUNT 5.16 mill/uL (4.2-5.4); RED CELL DISTRIBUTION WIDTH 15.2 % (11.6-14.6)
[2018-09-23 07:23] LABS: CHLORIDE 109 mEq/L (98-107)
[2018-09-23 08:00] VITALS: BP 128/86
[2018-09-23] MEDS: HYDRALAZINE HCL 25MG TABLET PO SCH ×2 (09:22→20:58)
[2018-09-23] MEDS: ASPIRIN 81MG TABLET PO SCH (09:22)
[2018-09-23] MEDS: LOSARTAN POTASSIUM 25 MG TABLET PO SCH (09:22)
[2018-09-23] MEDS: CLOTRIMAZOLE 10MG TROCHE MM SCH ×2 (09:22→14:08)
[2018-09-23 12:00] VITALS: BP 107/64
[2018-09-23 16:00] VITALS: BP 105/70
[2018-09-23 20:00] VITALS: BP 132/85
[2018-09-23] MEDS: DIPHENHYDRAMINE 50MG/ML VIAL IV PRN (20:58)
[2018-09-23] MEDS: ENOXAPARIN 40MG/0.4ML SYR SUBCUT SCH (20:59)
[2018-09-23] MEDS: ATORVASTATIN CALCIUM 20MG TABLET PO SCH (20:59)
[2018-09-24] VITALS (7 sets, daily range): BP systolic 109–135; BP diastolic 73–84
[2018-09-24] MEDS: DILTIAZEM HCL 90MG TABLET PO SCH ×3 (05:40→21:54)
[2018-09-24 06:53] LABS: BASOPHILS % 1.1 % (0.0-2.0); HEMATOCRIT. 44.9 % (36.0-48.0); HEMOGLOBIN. 14.8 g/dL (12.0-16.0); LYMPHOCYTES % 26.5 % (20.0-50.0); MEAN CORPUSCULAR HEMOGLOBIN 28.9 pg (28.0-32.0); MEAN CORPUSCULAR VOLUME 87.9 fL (81.0-99.0); MEAN PLATELET VOLUME 9.5 fl (7.4-10.4); MONOCYTES % 8.8 % (2.0-8.0); NEUTROPHILS % 61.6 % (40.0-76.0); PLATELET 318 x1000/uL (130-400); RED BLOOD CELL COUNT 5.11 mill/uL (4.2-5.4); RED CELL DISTRIBUTION WIDTH 15.4 % (11.6-14.6)
[2018-09-24 07:32] LABS: CHLORIDE 111 mEq/L (98-107)
[2018-09-24 07:37] LABS: PHOSPHORUS 3.2 mg/dL (2.5-4.9)
[2018-09-24] MEDS: HYDRALAZINE HCL 25MG TABLET PO SCH ×2 (08:43→21:54)
[2018-09-24] MEDS: ASPIRIN 81MG TABLET PO SCH (08:43)
[2018-09-24] MEDS: LOSARTAN POTASSIUM 25 MG TABLET PO SCH (08:43)
[2018-09-24] MEDS: CLOTRIMAZOLE 10MG TROCHE MM SCH ×5 (09:00→21:53)
[2018-09-24] MEDS: ATORVASTATIN CALCIUM 20MG TABLET PO SCH (21:52)
[2018-09-24] MEDS: ENOXAPARIN 40MG/0.4ML SYR SUBCUT SCH (21:52)
[2018-09-25] VITALS: BP 129/85
[2018-09-25 04:00] VITALS: BP 113/65
[2018-09-25] MEDS: DILTIAZEM HCL 90MG TABLET PO SCH ×3 (06:00→22:00)
[2018-09-25 06:41] LABS: BASOPHILS % 0.5 % (0.0-2.0); EOSINOPHILS % 0.4 % (0.0-5.0); HEMOGLOBIN. 14.8 g/dL (12.0-16.0); LYMPHOCYTES % 10.5 % (20.0-50.0); MEAN CORPUSCULAR HEMOGLOBIN 28.7 pg (28.0-32.0); MEAN CORPUSCULAR VOLUME 87.5 fL (81.0-99.0); MEAN PLATELET VOLUME 9.7 fl (7.4-10.4); MONOCYTES % 5.3 % (2.0-8.0); NEUTROPHILS % 83.3 % (40.0-76.0); PLATELET 363 x1000/uL (130-400); RED BLOOD CELL COUNT 5.14 mill/uL (4.2-5.4); RED CELL DISTRIBUTION WIDTH 15.2 % (11.6-14.6)
[2018-09-25 07:03] LABS: CHLORIDE 106 mEq/L (98-107)
[2018-09-25 07:24] LABS: PHOSPHORUS 3.3 mg/dL (2.5-4.9)
[2018-09-25 08:00] VITALS: BP 130/81
[2018-09-25] MEDS: LOSARTAN POTASSIUM 25 MG TABLET PO SCH (10:10)
[2018-09-25] MEDS: HYDRALAZINE HCL 25MG TABLET PO SCH ×2 (10:10→21:00)
[2018-09-25] MEDS: ASPIRIN 81MG TABLET PO SCH (10:10)
[2018-09-25] MEDS: CLOTRIMAZOLE 10MG TROCHE MM SCH ×4 (10:10→22:08)
[2018-09-25 12:00] VITALS: BP 103/71
[2018-09-25 20:00] VITALS: BP 98/70
[2018-09-25] MEDS: ATORVASTATIN CALCIUM 20MG TABLET PO SCH (22:07)
[2018-09-25] MEDS: ENOXAPARIN 40MG/0.4ML SYR SUBCUT SCH (22:07)
[2018-09-26] VITALS: BP 105/77
[2018-09-26 04:00] VITALS: BP 102/75
[2018-09-26] MEDS: DOCUSATE SODIUM 100MG CAPSULE PO PRN (05:42)
[2018-09-26] MEDS: POLYETHYLENE GLYCOL 3350 (17GM) 1 DOSE PACK PO PRN (05:42)
[2018-09-26] MEDS: DILTIAZEM HCL 90MG TABLET PO SCH ×3 (05:42→21:47)
[2018-09-26 06:35] LABS: BASOPHILS % 0.4 % (0.0-2.0); EOSINOPHILS % 0.9 % (0.0-5.0); HEMATOCRIT. 44.8 % (36.0-48.0); HEMOGLOBIN. 14.8 g/dL (12.0-16.0); LYMPHOCYTES % 16.1 % (20.0-50.0); MEAN CORPUSCULAR VOLUME 87.7 fL (81.0-99.0); MEAN PLATELET VOLUME 9.9 fl (7.4-10.4); MONOCYTES % 5.6 % (2.0-8.0); PLATELET 293 x1000/uL (130-400); RED BLOOD CELL COUNT 5.11 mill/uL (4.2-5.4); RED CELL DISTRIBUTION WIDTH 15.4 % (11.6-14.6)
[2018-09-26 07:15] LABS: CHLORIDE 110 mEq/L (98-107)
[2018-09-26 07:28] LABS: PHOSPHORUS 3.7 mg/dL (2.5-4.9)
[2018-09-26 08:00] VITALS: BP 118/77
[2018-09-26] MEDS: HYDRALAZINE HCL 25MG TABLET PO SCH ×2 (08:56→21:00)
[2018-09-26] MEDS: LOSARTAN POTASSIUM 25 MG TABLET PO SCH (08:57)
[2018-09-26] MEDS: CLOTRIMAZOLE 10MG TROCHE MM SCH ×4 (08:57→21:48)
[2018-09-26] MEDS: ASPIRIN 81MG TABLET PO SCH (08:57)
[2018-09-26 12:22] VITALS: BP 123/76
[2018-09-26 16:00] VITALS: BP 102/64
[2018-09-26 20:00] VITALS: BP 108/73
[2018-09-26] MEDS: ATORVASTATIN CALCIUM 20MG TABLET PO SCH (21:48)
[2018-09-26] MEDS: ENOXAPARIN 40MG/0.4ML SYR SUBCUT SCH (21:49)
[2018-09-27] VITALS: BP 118/66
[2018-09-27 04:00] VITALS: BP 112/72
[2018-09-27] MEDS: DILTIAZEM HCL 90MG TABLET PO SCH ×3 (05:17→22:40)
[2018-09-27] MEDS: POLYETHYLENE GLYCOL 3350 (17GM) 1 DOSE PACK PO PRN (05:18)
[2018-09-27] MEDS: DOCUSATE SODIUM 100MG CAPSULE PO PRN (05:18)
[2018-09-27 07:04] LABS: BASOPHILS % 0.6 % (0.0-2.0); EOSINOPHILS % 1.5 % (0.0-5.0); HEMATOCRIT. 40.4 % (36.0-48.0); HEMOGLOBIN. 13.4 g/dL (12.0-16.0); LYMPHOCYTES % 21.5 % (20.0-50.0); MEAN CORPUSCULAR VOLUME 87.6 fL (81.0-99.0); MEAN PLATELET VOLUME 9.8 fl (7.4-10.4); MONOCYTES % 6.1 % (2.0-8.0); NEUTROPHILS % 70.3 % (40.0-76.0); PLATELET 256 x1000/uL (130-400); RED BLOOD CELL COUNT 4.62 mill/uL (4.2-5.4); RED CELL DISTRIBUTION WIDTH 15.6 % (11.6-14.6)
[2018-09-27 07:34] LABS: CHLORIDE 108 mEq/L (98-107)
[2018-09-27 08:00] VITALS: BP 112/74
[2018-09-27] MEDS: CLOTRIMAZOLE 10MG TROCHE MM SCH ×4 (09:00→21:00)
[2018-09-27] MEDS: HYDRALAZINE HCL 25MG TABLET PO SCH ×2 (09:35→20:19)
[2018-09-27] MEDS: LOSARTAN POTASSIUM 25 MG TABLET PO SCH (09:35)
[2018-09-27] MEDS: ASPIRIN 81MG TABLET PO SCH (09:35)
[2018-09-27 12:00] VITALS: BP 100/61
[2018-09-27 13:10] LABS: A/G RATIO 0.9 (0.7-1.7); ALBUMIN 3.1 g/dL (2.9-4.4); ALPHA-1-GLOBULIN 0.3 g/dL (0.0-0.4); BETA GLOBULIN 0.9 g/dL (0.7-1.3); GLOBULIN TOTAL 3.3 g/dL (2.2-3.9); M-SPIKE Not Observed g/dL (Not Observed); TOTAL PROTEIN SERUM 6.4 g/dL (6.0-8.5)
[2018-09-27 16:00] VITALS: BP 109/62
[2018-09-27 20:00] VITALS: BP 103/62
[2018-09-27] MEDS: ENOXAPARIN 40MG/0.4ML SYR SUBCUT SCH (20:18)
[2018-09-27] MEDS: ATORVASTATIN CALCIUM 20MG TABLET PO SCH (20:18)
[2018-09-28] VITALS: BP 115/65
[2018-09-28 04:00] VITALS: BP 110/75
[2018-09-28] MEDS: DILTIAZEM HCL 90MG TABLET PO SCH (05:46)
[2018-09-28 07:11] LABS: BASOPHILS % 0.7 % (0.0-2.0); HEMATOCRIT. 39.1 % (36.0-48.0); HEMOGLOBIN. 12.9 g/dL (12.0-16.0); MEAN CORPUSCULAR HEMOGLOBIN 29.2 pg (28.0-32.0); MEAN CORPUSCULAR VOLUME 88.2 fL (81.0-99.0); MEAN PLATELET VOLUME 10.1 fl (7.4-10.4); MONOCYTES % 6.6 % (2.0-8.0); NEUTROPHILS % 62.7 % (40.0-76.0); PLATELET 267 x1000/uL (130-400); RED BLOOD CELL COUNT 4.44 mill/uL (4.2-5.4); RED CELL DISTRIBUTION WIDTH 15.8 % (11.6-14.6)
[2018-09-28 08:00] VITALS: BP 103/75
[2018-09-28 08:27] LABS: CHLORIDE 112 mEq/L (98-107)
[2018-09-28 08:37] LABS: PHOSPHORUS 3.2 mg/dL (2.5-4.9)
[2018-09-28] MEDS: LOSARTAN POTASSIUM 25 MG TABLET PO SCH (08:42)
[2018-09-28] MEDS: HYDRALAZINE HCL 25MG TABLET PO SCH (08:42)
[2018-09-28] MEDS: ASPIRIN 81MG TABLET PO SCH (09:10)
[2018-09-28] MEDS: CLOTRIMAZOLE 10MG TROCHE MM SCH ×2 (09:10→13:00)
[2018-09-28 12:00] VITALS: BP 107/65
[2018-09-28 14:11] VITALS: BP 103/75
[2018-09-29 09:10] LABS: 25-HYDROXY VITAMIN D3 24 ng/mL (.)
== END 2018-09-28 14:15 | DRG 45 ==
LOC: ER 23:19 → EDBEDREQDT 09-04 02:47 → EDBEDREQ 09-04 02:47 → EDBEDREQTM 09-04 02:47 → EDBEDREQSVC 09-04 03:48 → ENRESERV 09-04 05:18 → MICUSO 09-04 06:40 → 5EST 09-08 23:00 → 6WST 09-12 11:43 → 6EST 09-23 16:02
PROVIDERS: ADMIT Internal Medicine; ATTEND Internal Medicine
PROC: 4A00X4Z Measurement of Central Nervous Electrical Activity, External Approach (ICD-10-PCS; principal; 2018-09-11)
DX: I63.522 Cerebral infarction due to unspecified occlusion or stenosis of left anterior cerebral artery (principal); J96.91 Respiratory failure, unspecified with hypoxia; G93.41 Metabolic encephalopathy; E46 Unspecified protein-calorie malnutrition; B37.0 Candidal stomatitis; I16.1 Hypertensive emergency; N39.0 Urinary tract infection, site not specified; E78.5 Hyperlipidemia, unspecified; G81.91 Hemiplegia, unspecified affecting right dominant side; I49.3 Ventricular premature depolarization; E87.0 Hyperosmolality and hypernatremia; E83.39 Other disorders of phosphorus metabolism; E83.52 Hypercalcemia; F15.90 Other stimulant use, unspecified, uncomplicated; F20.9 Schizophrenia, unspecified; I10 Essential (primary) hypertension; R41.4 Neurologic neglect syndrome; R73.9 Hyperglycemia, unspecified; R47.01 Aphasia; I25.10 Atherosclerotic heart disease of native coronary artery without angina pectoris; E87.6 Hypokalemia; R74.0 Nonspecific elevation of levels of transaminase and lactic acid dehydrogenase [LDH]; I63.512 Cerebral infarction due to unspecified occlusion or stenosis of left middle cerebral artery; Z82.49 Family history of ischemic heart disease and other diseases of the circulatory system; Z86.73 Personal history of transient ischemic attack (TIA), and cerebral infarction without residual deficits; Z88.9 Allergy status to unspecified drugs, medicaments and biological substances; Z68.21 Body mass index [BMI] 21.0-21.9, adult
CPT/HCPCS: 36415; 36600; 70496; 70498; 70551; 71045; 80048; 80061; 80076; 80305; 80320; 82306; 82330; 82375; 82550; 82553; 82607; 82652; 82746; 82805; 82962; 83036; 83721; 83735; 83935; 83970; 84100; 84145; 84155; 84165; 84443; 84484; 86705; 86709; 86803; 87340; 87389; 92610; 93005; 93306; 93970; 96361; 96372; 96374; 96375; 97110; 97112; 97163; 97167; 97530; 99291; A6261; C1893; J0360; J0515; J0696; J1200; J1650; J2680; J3480; J3490; J7030; J7042; J7050; J7060; J7070; J7131; J7620; Q9967; A4315; G0480